=== PATIENT | female | born 1985 | race Caucasian/White ===

== ENCOUNTER 2017-07-22 08:41 | Outpatient (CLI) | payer MEDICAID ==
[~2017-07-22] VITALS: Ht 149.9 cm; Wt 64.7 kg
[2017-07-22 08:50] VITALS: Ht 149.9 cm; Wt 64.7 kg
[2017-07-22 08:51] VITALS: BP 100/65; PULSE 68
[2017-07-22] MEDS ORDERED: PNV11TAB PO (08:58)
--- NOTE | 2017-07-22 10:11 | RADRPT ---
PROCEDURE: XR Chest. CLINICAL INDICATION: Positive PPD TECHNIQUE: Single frontal view of the chest was obtained COMPARISON: None FINDINGS: The heart and mediastinum are within normal limits. The lungs are clear and there is no pleural effusion or pneumothorax. RPTAT: AA IMPRESSION: No active disease. No radiographic evidence of active tuberculosis. .Blair Cool MD, MD Date Time Electronically viewed and signed by .Blair Cool MD, on 07/22/2017 10:11 .S/
--- NOTE | 2017-07-22 11:14 | CONS ---
Date/Time of Note Date/Time of Note DATE: 07/22/17 TIME: 11:05 Consultation Date/Type/Reason Admit Date/Time July 22, 2017 OB triage visit ..This patient is a 32 years old 4 para 3 with estimated date of confinement of November 01, 2017 which makes her 24 weeks and 3 days today. She came to triage clinic due to positive PPD test to rule out tuberculosis. On examination she is a well-developed well-nourished lady presented with her no complaint of pain cough chest pain bloody sputum. Her general vital signs are normal with blood pressure 100/65 pulse rate 68 respiration 18 temperature 97.8 On examination patient her chest is clear ..Abdomen is soft fundus about 26 cm heart tone is normal. Very few contractions Constitutional: No chills, No diaphoresis, No disoriented, No febrile, No improved, No no complaints, No other, No poor po, No requiring IVF, No requiring O2 Eyes: No discharge, No no complaints, No other, No pain, No redness, No visual change ENT: No bleeding, No congestion, No discharge, No dysphagia, No no complaints, No other, No pain, No sore throat Respiratory: No cough, No no complaints, No other, No pain, No pleuritic pain, No shortness of breath, No sputum, No wheezing Cardiovascular: No chest pain, No edema, No lightheadedness, No no complaints, No orthopenea, No other, No palpitations, No paroxysmal nocturnal dyspnea Gastrointestinal: No blood, No constipation, No decreased appetite, No diarrhea , No flatus, No nausea, No no complaints, No other, No pain, No passing stool, No vomiting Genitourinary: other (Pelvic examination was not performed due to the fact that she does not have any contractions), No bleeding, No discharge, No dysuria, No flank pain, No hematuria, No no complaints Musculoskeletal: No back pain, No bone/joint pain, No neck pain, No no complaints, No other, No restricted range of motion, No swelling Skin: No bruising, No erythema, No laceration, No no complaints, No other, No pruritis, No rash, No skin lesions Neurologic: No confusion, No dizziness, No focal-weakness, No headache, No no complaints, No other, No seizure, No syncope Endocrine: No dry skin, No no complaints, No other, No polydypsia, No polyuria , No temp intolerance Additional Comments A single frontal view of the chest was obtained and the result was heart and mediastinum are within normal limits lungs are clear and there are no pleural effusion or pneumothorax impression no active disease no radiological evidence of active tuberculosis With these negative finding and we did review of her past history indicating that she had a vaccination for tuberculosis what is called BCG a child who and reducing the scar of that test she was reassured and was discharged home to be followed in her [facility] . End of dictation thank you Social History Smoking Status: Never smoker Exam/Review of Systems Vital Signs Vitals Vital Signs Date Time Temp Pulse Resp B/P Pulse Ox O2 Delivery O2 Flow Rate FiO2 07/22/17 08:51 97.8 68 100/65 GE MELENDEZ MD Jul 22, 2017 11:14
--- NOTE | 2017-07-22 11:48 | TRIAGE ---
OB Triage Datetime Report Generated by CPN: 07/22/2017 11:48 Datetime: 07/22/2017 10:57 Stage of : OB Triage Datetime: 07/22/2017 10:35 Stage of : OB Triage Datetime: 07/22/2017 09:46 Labor Evaluation Frequency: 0 Monitor Mode: External Resting Tone Leary: Relaxed Heart Rate FHR Baseline Rate: 135 Monitor Mode: External US Variability: Moderate 6-25 bpm Decelerations: None Category: Category I Pain Assessment Pain Scale: 0 Pain Presence: None/Denies Pain Type: N/A Pain Goal: 3 Pain Relief Measures: Comfort Measures Datetime: 07/22/2017 08:46 Stage of : OB Triage Assessment Type: Triage Maternal Assessment Level of Consciousness: Fully Conscious DTR's/Clonus: DTRs 2+; No Clonus Headache: Denies Blurred Vision: No Respiratory Effort: Unlabored; Regular Rhythm; Equal Expansion Breath Sounds, Left: Clear and Equal Breath Sounds, Right: Clear and Equal Nausea/Vomiting: Denies RUQ Epigastric Pain: Denies Facial Edema: None Temperature Route: Axillary Fall Risk Assessment History of Falling: (0) No Secondary Diagnosis: (0) No Ambulatory Aid: (0) Bedrest/Nurse Assist IV Therapy: (0) No Gait: (0) Normal/Bedrest/Immobile Mental Status: (0) Oriented to Own Ability Fall Score: 0 Fall Risk Score Definition: No Risk: No action required Labor Evaluation Frequency: 0 Monitor Mode: External Resting Tone Leary: Relaxed Heart Rate FHR Baseline Rate: 135 Monitor Mode: External US Variability: Moderate 6-25 bpm Pain Assessment Pain Scale: 0 Datetime: 07/22/2017 08:45 Time of Arrival: 07/22/2017 08:32 EGA: 25.3 Arrived By: Ambulatory Arrived From: Home Chief Complaint: SENT FROM CLINIC FOR X-RAY DUE TO POS PPD Movement: Present Contractions: Denies/Absent Rupture of Membranes: Denies Vaginal Bleeding: None Vaginal Discharge: Denies Recent Sexual Intercouse: Denies Abdominal Trauma: Not Applicable Patient Complaints: None Time Provider Notified: 07/22/2017 10:35 Provider Notified: ana Initial Plan: MONITOR, CHEST XRAY
== END 2017-07-22 11:10 | disposition home or self-care (01) ==
LOC: OBT 08:41 → L-D 08:41 → OBT 11:10
PROVIDERS: ATTEND Obstetrics & Gynecology
DX: O99.512 Diseases of the respiratory system complicating pregnancy, second trimester (principal); Z3A.25 25 weeks gestation of pregnancy; Z11.1 Encounter for screening for respiratory tuberculosis
CPT/HCPCS: 71010; G0463

== ENCOUNTER 2017-10-31 12:02 | Inpatient (IN) | END 2017-11-02 14:10 | disposition home or self-care (01) | DRG 775 ==